=== PATIENT | female | born 2005 | race Caucasian/White ===

== ENCOUNTER 2025-04-24 15:04 | Emergency (ER) | payer OTHER, SELFPAY ==
[2025-04-24] VITALS (13 sets, daily range): BP systolic 116–130; BP diastolic 78–92; PULSE 78–90; BMI 29.9
[2025-04-24 15:08] LABS: Glucose - Point of Care 89 mg/dl (70-99)
--- NOTE | 2025-04-24 15:28 | EDRN ---
Patient with c/o increased dizziness from going to lying to sitting position. Unable to stand due to dizziness.
--- NOTE | 2025-04-24 15:37 | EDRN ---
Received patient on stretcher. Patient was rapid response on the 3rd floor. Patient was visiting her grandfather when she passed out. Per mother the patient texted her brother saying that the room was hot prior to passing out. Mother denies any
twitching/tremors of arms and legs. Mother stated that the patient looked blue and her eyes rolled back and her eyelids were twitching. Patient is lethargic but arouses easily to touch and sound. Oriented x4. Patient with c/o dizziness and headache.
Denies c/o nausea and vomiting. Patient stated that she has been eating and drinking.
[2025-04-24 15:42] LABS: HCG, Serum Qualitative Screen Negative; Hematocrit 39.6 % (37.0-47.0); Hemoglobin 13.3 g/dL (12.0-16.0); Mean Corp Hgb Conc. 33.6 g/dL (33.0-37.0); Mean Corpuscular Volume 87.8 fL (81.0-99.0); Nucleated Red Blood Cells % 0 %; Platelet Count 270 10^3/uL (130-400); Red Cell Dist. Width 11.9 % (11.5-14.5)
--- NOTE | 2025-04-24 15:45 | ED.GENMED ---
History of Present Illness
General
Chief Complaint: Fainting/Passed Out
Source: patient and family (mother at bedside)
Exam Limitations: none
Time Seen by Provider: 04/24/25 15:11
Nursing documentation reviewed up to this point in time: agreed with
History of Present Illness
History of Present Illness:
20 yo female w h/o very heavy periods, currently menstruating, states 'heavy' has used 3 tampons since 6 a.m today. Was visiting her grandfather upstairs in hospital when mom, who witnessed states she became pale and sweating, she walked over to her
feeling faint, she dropped her phone and faltered and they sat her in a chair, rapid response team called. Pt remembers feeling dizzy and sweating and faint, does not remember faltering or being put onto the chair but does remember them putting her
onto the gurney. She did not fall. She now has a posterior headache 12/14. Patient denies chest pain, trouble breathing, abdominal pain, nausea. She has had no UTI symptoms. She states she still feels dizzy.
Past History
Past History
ED Past Medical History: Other (Heavy periods, just put on a new control pill but cannot remember the name.) and Other (3 years ago she was working up on a ladder, the shelves fell onto her and pushed her off the ladder, she hit the back of
her head, for 1-1/2 years she was in OT PT postconcussion and states she has no residual problems)
Phy Exam
Physical Exam
Physical Exam:
GENERAL: No acute distress. A&Ox3.
CONSTITUTIONAL: Afebrile.
EYES: clear, conjunctivae normal
ENMT: moist mucus membranes, Pharynx nl
RESPIRATORY: Regular respirations, nonlabored, lungs clear.
CARDIOVASCULAR: Regular rate and rhythm, no murmurs, no rubs.
GI: Soft, nontender, normal BS
MUSCULOSKELETAL: Moves with ease. Well perfused.
SKIN: Warm, dry, pale, diaphoretic
PSYCH: Normal mood and affect. Well kept, interactive and appropriate
NEUROLOGIC: Awake, alert and oriented. No focal neurological deficits
Course
Orders/Labs/Results
Orders:
Orders
04/24/25 15:06
EKG [Electrocardiogram (*1)] Urgent
Reason for Study: Syncope
EKG- Treatment ONCE
Test Result ONCE
04/24/25 15:17
CMP [Comprehensive Metabolic Panel] Urgent
Complete Blood Count/With Diff Urgent
HCG, Serum Qualitative Screen Urgent
04/24/25 15:50
Acetaminophen [Tylenol] 1,000 mg PO NOW STA
Abnormal Lab Results
04/24/25
15:17
MPV 10.5 H fL
(7.4-10.4)
04/24/25 15:17
04/24/25 15:17
Vital Signs
Initial and Last Documented VS:
Initial Vital Signs
Temp Pulse Resp BP Pulse Ox
98.3 F 88 20 120/88 99
04/24/25 15:06 04/24/25 15:06 04/24/25 15:06 04/24/25 15:06 04/24/25 15:06
Last Documented Vital Signs
Temp Pulse Resp BP Pulse Ox
98.3 F 86 27 120/88 100
04/24/25 15:06 04/24/25 15:09 04/24/25 15:09 04/24/25 15:06 04/24/25 15:50
MDM/Problems Addressed
Differential Diagnosis Includes:
Dehydration, anemia, vasovagal response
MDM/Problems Addressed:
20 yo female w h/o very heavy periods, currently menstruating, states 'heavy' has used 3 tampons since 6 a.m today. Was visiting her grandfather upstairs in hospital when mom, who witnessed states she became pale and sweating, she walked over to her
feeling faint, she dropped her phone and faltered and they sat her in a chair, rapid response team called. Pt remembers feeling dizzy and sweating and faint, does not remember faltering or being put onto the chair but does remember them putting her
onto the gurney. She did not fall. She now has a posterior headache 12/14. Patient denies chest pain, trouble breathing, abdominal pain, nausea. She has had no UTI symptoms. She states she still feels dizzy.
She ate breakfast prior to this occurrence. Bedside glucose 89
Afebrile, NAD, laying quietly on stretcher with eyes closed, responding appropriately
Attempting to get orthostatics, patient could not tolerate standing out of bed as she became pale and diaphoretic and dizzy
EKG: NSR
CBC normal
CMP normal
hCG negative
Patient removed her tampon and there was very small amount of blood on it
She and family members state the room she was standing and upstairs was very hot, it was crowded with people, normal labs, certainly supports probable vasovagal episode.
Supine: 117/78 HR 88
Sittin/87 HR 92
Standin/92 HR 96
Pt still 'a little dizzy,' no significant vaginal bleeding, Stable for discharge.
*Pulse Oximetry
SaO2: 100
Oxygen Mode of Delivery: Room air
Patient hypoxic: no
*EKG
EKG Intrepretation Date: 04/24/25
Interpretation: normal
Heart Rate: 90
Rate: normal
Rhythm: sinus
[place]: normal axis
Interval: normal interval
QRS Pattern: normal QRS
Ischemia: no ischemia
*Critical Care Note
Total Time (30-74mins, 75-104mins- exclusive of procedures): Not Applicable
ED Attending Note
-
Portions of this chart may have been created with voice recognition software.� Occasional wrong word or��sound alike� substitutions may have occurred due to the inherent limitations of voice recognition software.
Discharge Plan
Departure
Patient Disposition: Home (Routine Discharge)
Date of Disposition: 04/24/25
Time of Disposition: 16:42
Patient with high blood pressure during this ER visit?: No
Condition: Good
Discharge Problem:
Fainting episodes
Instructions: Syncope (Fainting) (DC)
Referrals:
Your Doctor [Other] - As needed
NONE,* [Family Provider, Internal Medicine]
Activity Restrictions/Additional Instructions:
As we discussed, nothing worrisome in your exam here today.
You most likely had a vasovagal episode due to the crowded, hot room and having your period
Drink at least eight 8 ounce glasses of water/fluid daily for the next few days.
Interventions
Interventions:
*Risk Screen - Suicide Last Done: 04/24/25 15:12
*General Assessment Last Done: 04/24/25 15:12
*Neglect/Abuse Screening Last Done: 04/24/25 15:12
*ED- Fall Risk Assessment Last Done: 04/24/25 15:12
*ED COVID-19 Vaccine History Last Done: 04/24/25 15:12
*ED Influenza Vaccine History Last Done: 04/24/25 15:12
ED- Cardiac Assessment Last Done: 04/24/25 15:24
ED- Neurological Assessment Last Done: 04/24/25 15:24
Discharge Date and Time
Print Language: CHINESE
[2025-04-24 15:47] LABS: ALT (SGPT) 26 U/L (0-35); AST (SGOT) 26 U/L (14-36); Albumin 4.6 g/dl (3.5-5.0); Alkaline Phosphatase 56 U/L (38-126); Blood Urea Nitrogen 12 mg/dl (7-17); Calcium 10.0 mg/dl (8.4-10.2); Carbon Dioxide 24 mmol/L (22-30); Chloride 106 mmol/L (98-107); Estimated Creatinine Clearance > 125 ml/min; Glucose 96 mg/dl (70-99); Potassium 3.8 mmol/L (3.5-5.1); Sodium 137 mmol/L (135-145); Total Protein 7.6 g/dl (6.3-8.2); eGFR > 60.00
[2025-04-24] MEDS: TYLENOL 1000 MG PO (16:15)
--- NOTE | 2025-04-24 17:55 | EDRN ---
Reviewed discharge instructions with patient and her mother. Verbalized understanding. [facility]
== END 2025-04-24 17:55 | disposition home or self-care (01) ==
LOC: EMR 15:04
PROVIDERS: EMERGENCY PHYSICIAN Emergency Medicine
DX: R55 Syncope and collapse (principal)
CPT/HCPCS: 99283; 80053; 82962; 84703; 85025; 93005